=== PATIENT | male | born 1930 | race Caucasian/White ===

== ENCOUNTER → 2016-08-31 | Outpatient (CLI) | payer OTHER ==
[~2016-08-31] MED LIST: AMLO2.5T PO; AMLO5TAB2 PO; ASPI-496 PO; ASPI-515 PO; AZIT500T4 PO; CEFD300C2 PO; CEFU500T PO; CYAN10008 PO; CYAN250013 PO; DOXA1TAB2 PO; DOXY100T PO; Doxazosin Mesylate PO; ENAL10TA PO; FURO20TA3 PO; LABE200T3 PO; LACT1CAP24 PO; LACT1CAP35 PO; LEVO750T26 PO; METF10002 PO; METO25TA35 PO; MULT-717 PO; OMEP-110 PO; OMEP40CA6 PO; ONDA-39 PO; ONDA4TAB10 PO; PHEN-494 PO; POTA20TA14 PO; POTA20TA89 PO; TAMS-11 PO; VANC1VIA3 PO; VANCOMYCIN PO; VITA400T6 PO
== END | disposition home or self-care (01) ==
LOC: CFH 12:25
PROVIDERS: ATTEND Nurse Practitioner Family
DX: J90 Pleural effusion, not elsewhere classified (principal); R00.1 Bradycardia, unspecified
CPT/HCPCS: 71020

== ENCOUNTER 2016-10-16 03:46 | Inpatient (IN) | payer OTHER ==
[~2016-10-16] VITALS: Ht 188 cm; Wt 82.5 kg
[~2016-10-16 03:46] MED LIST changes: -AZIT500T4 PO; +AZIT500T77 PO; -CEFD300C2 PO; +CEFD300C37 PO
[2016-10-16] MEDS ORDERED: MORPHINE SULFATE 4 MG/ML, 1ML ONE (04:26)
[2016-10-16] MEDS ORDERED: BACITRACIN ZINC OINT 500U/GM, 0.9 GM ONE (04:27)
[2016-10-16] MEDS ORDERED: ONDANSETRON 2MG/ML, 2ML IVPush ONE (04:30)
[2016-10-16] MEDS ORDERED: ONDANSETRON 2MG/ML, 2ML ONE (04:30)
[2016-10-16] MEDS ORDERED: SODIUM CHLORIDE FLUSH 10ML SYR IVF ONE (04:30)
[2016-10-16] MEDS: MORPHINE SULFATE 4 MG/ML, 1ML IVPush PRN ×2 (04:51→06:29)
[2016-10-16 05:25] LABS: BLOOD UREA NITROGEN 44 mg/dL (7-18)
[2016-10-16] MEDS ORDERED: LIDOCAINE 1%, 20ML SQ ONE (05:30)
[2016-10-16] MEDS ORDERED: LIDOCAINE 1%, 20ML ONE (05:57)
[2016-10-16] MEDS ORDERED: SODIUM CHLORIDE 0.9% 1,000 ML IV ONE (07:40)
[2016-10-16] MEDS ORDERED: MORPHINE SULFATE 4 MG/ML, 1ML IVPush PRN (08:00)
[2016-10-16] MEDS ORDERED: ONDANSETRON 2MG/ML, 2ML IVPush PRN ×2 (08:00→10:30)
[2016-10-16 09:00] VITALS: BP 168/65
[2016-10-16] MEDS ORDERED: FUROSEMIDE 40 MG/4 ML IV ONE (10:00)
[2016-10-16] MEDS ORDERED: ONDANSETRON ODT 4 MG PO PRN (10:30)
[2016-10-16] MEDS ORDERED: DOCUSATE 100 MG CAPSULE PO PRN (10:30)
[2016-10-16] MEDS ORDERED: hydrALAzine 20 MG/ML, 1ML IVPush PRN (10:30)
[2016-10-16] MEDS ORDERED: morphine SULFATE 10 MG/ML, 1ML IVPush PRN (10:30)
[2016-10-16] MEDS ORDERED: ACETAMINOPHEN 325 MG TABLET PO PRN (10:30)
[2016-10-16] MEDS ORDERED: POLYETHYLENE GLYCOL 17 GM PACKET PO PRN (10:30)
[2016-10-16] MEDS ORDERED: BISACODYL 10 MG SUPP PR PRN (10:30)
[2016-10-16] MEDS ORDERED: DEXTROSE 4 GM TAB.CHEW PO PRN (13:00)
[2016-10-16] MEDS ORDERED: DEXTROSE 50%, 50ML SYRINGE IVPush PRN (13:00)
[2016-10-16] MEDS ORDERED: GLUCAGON 1 MG IM PRN (13:00)
[2016-10-16 13:17] VITALS: BP 165/62
[2016-10-16] MEDS: DOXAZOSIN 2MG TABLET PO SCH ×2 (13:19→22:41)
[2016-10-16] MEDS: INSULIN REGULAR 100 UNITS/ML, 3ML VIAL SQ-INSULIN SCH ×3 (13:24→22:29)
[2016-10-16 14:10] VITALS: BP 171/69
[2016-10-16 14:30] VITALS: BP 164/78
[2016-10-16 20:30] VITALS: BP 175/62
[2016-10-16] MEDS ORDERED: DOXAZOSIN 2MG TABLET PO SCH (21:00)
[2016-10-16] MEDS ORDERED: AMLODIPINE 5 MG TABLET PO SCH (21:00)
[2016-10-16] MEDS ORDERED: DOXAZOSIN MESYLATE 2 MG PO SCH (21:00)
[2016-10-16] MEDS: LABETALOL 200 MG TABLET PO SCH (22:16)
[2016-10-16] MEDS: SODIUM CHLORIDE FLUSH 10ML SYR IVF SCH (22:29)
[2016-10-17] VITALS (7 sets, daily range): BP systolic 144–192; BP diastolic 61–79
[2016-10-17 00:41] LABS: BLOOD UREA NITROGEN 45 mg/dL (7-18)
[2016-10-17] MEDS: DOXAZOSIN 2MG TABLET PO SCH ×2 (07:55→20:28)
[2016-10-17] MEDS: TAMSULOSIN 0.4 MG CAP.ER.24H PO SCH (07:55)
[2016-10-17] MEDS: LABETALOL 200 MG TABLET PO SCH ×2 (07:55→20:28)
[2016-10-17] MEDS: CYANOCOBALAMIN 1,000 MCG TABLET PO SCH (07:56)
[2016-10-17] MEDS: SODIUM CHLORIDE FLUSH 10ML SYR IVF SCH ×2 (07:56→20:29)
[2016-10-17] MEDS: SENNA/DOCUSATE TABLET PO SCH (07:56)
[2016-10-17] MEDS: INSULIN REGULAR 100 UNITS/ML, 3ML VIAL SQ-INSULIN SCH ×4 (07:58→20:48)
[2016-10-17] MEDS ORDERED: FUROSEMIDE 40 MG/4 ML IV ONE (10:00)
[2016-10-17] MEDS ORDERED: NEOSPORIN OINT, 15GM ONE (10:11)
[2016-10-17] MEDS ORDERED: KETAMINE 10 MG/ML, 20ML ONE (10:21)
[2016-10-17] MEDS ORDERED: BUPIVACAINE/PF 0.5% ONE (10:22)
[2016-10-17] MEDS ORDERED: FENTANYL PF 100 MCG/2ML ONE (11:10)
[2016-10-17] MEDS ORDERED: CEFAZOLIN 1,000 MG ONE (11:11)
[2016-10-17] MEDS ORDERED: PROPOFOL 10 MG/ML, 20ML ONE (11:11)
[2016-10-17] MEDS ORDERED: GLYCOPYRROLATE 0.2MG/1ML ONE (11:11)
[2016-10-17] MEDS ORDERED: PHENYLEPHRINE 10 MG/ML ONE (11:11)
[2016-10-17] MEDS ORDERED: HYDROcodone/APAP 7.5-325MG/15ML UDC PO PRN ×2 (12:00→15:00)
[2016-10-17] MEDS ORDERED: hydrALAzine 20 MG/ML, 1ML IV PRN (12:00)
[2016-10-17] MEDS ORDERED: FENTANYL PF 100 MCG/2ML IV PRN (12:00)
[2016-10-17] MEDS ORDERED: METOPROLOL 1 MG/ML, 5ML IV PRN (12:00)
[2016-10-17] MEDS ORDERED: ALBUTEROL/IPRATROPIUM 2.5MG/0.5MG, 3 ML NPPB PRN (12:00)
[2016-10-17] MEDS ORDERED: HYDROmorphone 1 MG/ML, 1ML IV PRN ×2 (12:00→15:00)
[2016-10-17] MEDS ORDERED: ACETAMINOPHEN 325 MG TABLET PO PRN (12:00)
[2016-10-17] MEDS ORDERED: ONDANSETRON 2MG/ML, 2ML IV PRN (15:00)
[2016-10-17] MEDS ORDERED: ONDANSETRON ODT 4 MG PO PRN (15:00)
[2016-10-17] MEDS ORDERED: OXYcodone/APAP 5/325MG TABLET PO PRN (15:00)
[2016-10-17] MEDS: KETOROLAC 30 MG/1 ML IV SCH ×2 (15:49→23:47)
[2016-10-17] MEDS ORDERED: CEFAZOLIN PMX 1GM/50ML 50 ML IVPB SCH (16:00)
[2016-10-17] MEDS: CEFAZOLIN PMX 1GM/50ML 50 ML IVPB SCH (20:27)
[2016-10-17] MEDS: DOCUSATE 100 MG CAPSULE PO SCH (20:28)
[2016-10-18 02:37] VITALS: BP 153/50
[2016-10-18] MEDS: CEFAZOLIN PMX 1GM/50ML 50 ML IVPB SCH (04:14)
[2016-10-18 04:17] VITALS: BP 169/63
[2016-10-18 04:57] LABS: BLOOD UREA NITROGEN 46 mg/dL (7-18)
[2016-10-18] MEDS: ENOXAPARIN 40 MG/0.4 ML SQ SCH (06:32)
[2016-10-18] MEDS: INSULIN REGULAR 100 UNITS/ML, 3ML VIAL SQ-INSULIN SCH ×4 (07:00→21:24)
[2016-10-18 08:09] VITALS: BP 170/62
[2016-10-18] MEDS: LABETALOL 200 MG TABLET PO SCH ×2 (08:15→21:19)
[2016-10-18] MEDS: DOCUSATE 100 MG CAPSULE PO SCH ×2 (08:15→21:16)
[2016-10-18] MEDS: CYANOCOBALAMIN 1,000 MCG TABLET PO SCH (08:15)
[2016-10-18] MEDS: DOXAZOSIN 2MG TABLET PO SCH ×2 (08:15→21:20)
[2016-10-18] MEDS: KETOROLAC 30 MG/1 ML IV SCH (08:15)
[2016-10-18] MEDS: TAMSULOSIN 0.4 MG CAP.ER.24H PO SCH (08:15)
[2016-10-18] MEDS: SODIUM CHLORIDE FLUSH 10ML SYR IVF SCH ×2 (08:16→21:20)
[2016-10-18] MEDS: SENNA/DOCUSATE TABLET PO SCH (08:24)
[2016-10-18 14:02] VITALS: BP 132/53
[2016-10-18 19:36] VITALS: BP 179/69
[2016-10-19 02:27] VITALS: BP 177/64
[2016-10-19] MEDS: ENOXAPARIN 40 MG/0.4 ML SQ SCH (05:24)
[2016-10-19 06:06] LABS: BLOOD UREA NITROGEN 52 mg/dL (7-18)
[2016-10-19] MEDS: INSULIN REGULAR 100 UNITS/ML, 3ML VIAL SQ-INSULIN SCH ×2 (07:00→12:15)
[2016-10-19 07:09] VITALS: BP 163/57
[2016-10-19] MEDS ORDERED: DOCU-30 PO (07:35)
[2016-10-19] MEDS ORDERED: INSU100V5 SQ-INSULIN (07:35)
[2016-10-19] MEDS ORDERED: TRAM50TA2 PO (07:35)
[2016-10-19] MEDS ORDERED: ENOX40SY4 SQ (07:35)
[2016-10-19] MEDS ORDERED: FUROSEMIDE 20 MG TABLET PO SCH (09:00)
[2016-10-19] MEDS: SODIUM CHLORIDE FLUSH 10ML SYR IVF SCH (09:16)
[2016-10-19] MEDS: DOCUSATE 100 MG CAPSULE PO SCH (09:17)
[2016-10-19] MEDS: TAMSULOSIN 0.4 MG CAP.ER.24H PO SCH (09:17)
[2016-10-19] MEDS: SENNA/DOCUSATE TABLET PO SCH (09:17)
[2016-10-19] MEDS: DOXAZOSIN 2MG TABLET PO SCH (09:17)
[2016-10-19] MEDS: LABETALOL 200 MG TABLET PO SCH (09:18)
[2016-10-19] MEDS: CYANOCOBALAMIN 1,000 MCG TABLET PO SCH (09:18)
[2016-10-19 13:59] VITALS: BP 114/58
[2016-10-19 18:00] VITALS: BP 133/70
== END 2016-10-19 15:31 | DRG 480 ==
LOC: ED 04:13 → EDIP 07:54 → 4NOR 08:29
PROVIDERS: ADMIT Internal Medicine; ATTEND Internal Medicine
PROC: 0JQ00ZZ Repair Scalp Subcutaneous Tissue and Fascia, Open Approach (ICD-10-PCS; principal; 2016-10-16)
PROC: 0QS734Z Reposition Left Upper Femur with Internal Fixation Device, Percutaneous Approach (ICD-10-PCS; 2016-10-17)
DX: S72.002A Fracture of unspecified part of neck of left femur, initial encounter for closed fracture (principal); I50.33 Acute on chronic diastolic (congestive) heart failure; K66.1 Hemoperitoneum; J96.90 Respiratory failure, unspecified, unspecified whether with hypoxia or hypercapnia; I13.0 Hypertensive heart and chronic kidney disease with heart failure and stage 1 through stage 4 chronic kidney disease, or unspecified chronic kidney disease; N17.9 Acute kidney failure, unspecified; N39.0 Urinary tract infection, site not specified; D63.8 Anemia in other chronic diseases classified elsewhere; D75.89 Other specified diseases of blood and blood-forming organs; E11.22 Type 2 diabetes mellitus with diabetic chronic kidney disease; E11.65 Type 2 diabetes mellitus with hyperglycemia; E87.5 Hyperkalemia; H91.90 Unspecified hearing loss, unspecified ear; I08.3 Combined rheumatic disorders of mitral, aortic and tricuspid valves; I27.2 Other secondary pulmonary hypertension; I48.0 Paroxysmal atrial fibrillation; K57.90 Diverticulosis of intestine, part unspecified, without perforation or abscess without bleeding; M19.90 Unspecified osteoarthritis, unspecified site; N18.9 Chronic kidney disease, unspecified; N40.0 Benign prostatic hyperplasia without lower urinary tract symptoms; R29.6 Repeated falls; R32 Unspecified urinary incontinence; S01.01XA Laceration without foreign body of scalp, initial encounter; S51.011A Laceration without foreign body of right elbow, initial encounter; S51.012A Laceration without foreign body of left elbow, initial encounter; S51.819A Laceration without foreign body of unspecified forearm, initial encounter; W18.2XXA Fall in (into) shower or empty bathtub, initial encounter; Y92.009 Unspecified place in unspecified non-institutional (private) residence as the place of occurrence of the external cause; Y93.E1 Activity, personal bathing and showering; Z66 Do not resuscitate; Z79.01 Long term (current) use of anticoagulants; Z79.84 Long term (current) use of oral hypoglycemic drugs; Z86.19 Personal history of other infectious and parasitic diseases; Z86.73 Personal history of transient ischemic attack (TIA), and cerebral infarction without residual deficits; Z87.442 Personal history of urinary calculi
CPT/HCPCS: 12002; 36415; 70450; 71010; 72125; 72192; 74150; 76000; 76770; 80048; 82040; 82962; 83880; 85025; 85610; 85730; 93005; 96374; 96375; 96376; C1713; J0690; J1650; J1815; J1885; J1940; J2405; J2704; J3010; J3490; Q0162; J0360; J2370

== ENCOUNTER → 2016-11-10 | Outpatient (CLI) | payer OTHER ==
[~2016-11-10] MED LIST changes: +DOCU-30 PO; +ENOX40SY4 SQ; +INSU100V5 SQ-INSULIN; +TRAM50TA2 PO
== END | disposition home or self-care (01) ==
LOC: CFH 12:30
PROVIDERS: ATTEND Physician Assistant Medical
DX: M79.89 Other specified soft tissue disorders (principal)

== ENCOUNTER 2016-11-21 03:01 | Emergency (ER) | payer OTHER ==
[~2016-11-21] VITALS: Ht 182.9 cm; Wt 82.0 kg
[2016-11-21] MEDS ORDERED: METF10002 PO (03:24)
[2016-11-21 04:49] VITALS: BP 115/39
== END 2016-11-21 05:52 | disposition home or self-care (01) ==
LOC: ED 03:24
DX: S42.294A Other nondisplaced fracture of upper end of right humerus, initial encounter for closed fracture (principal); E11.9 Type 2 diabetes mellitus without complications; I10 Essential (primary) hypertension; N40.0 Benign prostatic hyperplasia without lower urinary tract symptoms; I48.91 Unspecified atrial fibrillation; Z88.0 Allergy status to penicillin; Z86.73 Personal history of transient ischemic attack (TIA), and cerebral infarction without residual deficits; W19.XXXA Unspecified fall, initial encounter; Y93.89 Activity, other specified; Y99.8 Other external cause status; Y92.009 Unspecified place in unspecified non-institutional (private) residence as the place of occurrence of the external cause
CPT/HCPCS: 99284

== ENCOUNTER 2017-02-22 08:26 | Observation (INO) | payer OTHER ==
[2017-02-20 11:39] LABS: HEMATOCRIT 33.7 % (39.2-51.8); HEMOGLOBIN 11.5 g/dL (13.7-18.0); WHITE BLOOD COUNT 9.5 x10^3/uL (3.4-10)
[2017-02-20 11:51] LABS: BLOOD UREA NITROGEN 57 mg/dL (7-18)
[~2017-02-22] VITALS: Ht 180.3 cm; Wt 75.9 kg
[~2017-02-22 08:26] MED LIST changes: +AZIT500T5 PO; -AZIT500T77 PO; +CYAN100072 PO; -CYAN10008 PO; +DOCU-131 PO; -DOCU-30 PO; +ENAL20TA PO; +LACT1CAP37 PO; -ONDA-39 PO; +ONDA4TAB12 PO; -PHEN-494 PO; +PHEN-583 PO
[2017-02-22] MEDS ORDERED: SODIUM CHLORIDE 0.9% 1,000 ML IV SCH (08:31)
[2017-02-22] MEDS ORDERED: VANCOMYCIN PMX 1GM/200ML 200 ML IVPB ONE ×2 (09:00→23:30)
[2017-02-22] MEDS ORDERED: MULT-205 PO (09:06)
[2017-02-22] MEDS ORDERED: MIDAZOLAM 1 MG/ML, 5ML ONE (09:06)
[2017-02-22] MEDS ORDERED: VANCOMYCIN 500 MG ONE (09:06)
[2017-02-22] MEDS ORDERED: VITA1TAB19 PO (09:06)
[2017-02-22] MEDS ORDERED: DIPHENHYDRAMINE 50 MG/ML, 1ML ONE (09:06)
[2017-02-22] MEDS ORDERED: FENTANYL PF 100 MCG/2ML ONE (09:06)
[2017-02-22] MEDS ORDERED: LIDOCAINE 2%, 20ML ONE ×2 (09:07→10:15)
[2017-02-22] MEDS ORDERED: VANCOMYCIN PMX 1GM/200ML 200 ML ONE (09:07)
[2017-02-22] MEDS ORDERED: ONDANSETRON 2MG/ML, 2ML ONE (09:24)
[2017-02-22] MEDS ORDERED: ONDANSETRON 2MG/ML, 2ML IVPush ONE (09:30)
[2017-02-22] MEDS ORDERED: ONDANSETRON 4 MG TABLET PO PRN (11:00)
[2017-02-22 14:50] VITALS: BP 166/71
[2017-02-22] MEDS: FUROSEMIDE 40 MG TABLET PO SCH (18:22)
[2017-02-22] MEDS: metFORMIN 500 MG TABLET PO SCH (18:22)
[2017-02-22 19:08] VITALS: BP 167/68
[2017-02-22] MEDS ORDERED: VANCOMYCIN PMX 1GM/200ML 200 ML IVPB SCH (21:00)
[2017-02-22 22:31] VITALS: BP 176/68
[2017-02-22] MEDS: SODIUM CHLORIDE FLUSH 10ML SYR IVF SCH (22:42)
[2017-02-22] MEDS: DOXAZOSIN 2MG TABLET PO SCH (22:42)
[2017-02-22] MEDS: LABETALOL 200 MG TABLET PO SCH (22:44)
[2017-02-22] MEDS: ENALAPRIL 20MG TABLET PO SCH (22:44)
[2017-02-23 01:50] VITALS: BP 167/70
[2017-02-23] MEDS ORDERED: OMEPRAZOLE 20 MG CAPSULE.DR PO SCH (07:30)
[2017-02-23 07:50] VITALS: BP 159/66
[2017-02-23] MEDS ORDERED: TEMPLATE NON-FORMULARY MED. (Multivits-Min/Fa/Lycopene/Lut** (Centrum Silver Tablet**) 1 T PO SCH (09:00)
[2017-02-23] MEDS ORDERED: TAMSULOSIN 0.4 MG CAP.ER.24H PO SCH (09:00)
[2017-02-23] MEDS ORDERED: TEMPLATE NON-FORMULARY MED. (Vitamin B Complex** (B Complex**) 1 TAB) PO SCH (09:00)
[2017-02-23] MEDS ORDERED: MULTIVITAMINS/MINERALS TABLET PO SCH (09:00)
[2017-02-23] MEDS ORDERED: LACTOBACILLUS 1GM/ PACKET PO SCH (09:00)
[2017-02-23] MEDS: FUROSEMIDE 40 MG TABLET PO SCH (09:00)
[2017-02-23] MEDS: SODIUM CHLORIDE FLUSH 10ML SYR IVF SCH (10:15)
[2017-02-23] MEDS: metFORMIN 500 MG TABLET PO SCH (10:15)
[2017-02-23] MEDS: LABETALOL 200 MG TABLET PO SCH (10:15)
[2017-02-23] MEDS: ENALAPRIL 20MG TABLET PO SCH (10:15)
[2017-02-23] MEDS: DOXAZOSIN 2MG TABLET PO SCH (10:15)
== END 2017-02-23 11:36 | disposition home or self-care (01) ==
LOC: CACL 08:26 → ORIP 10:41 → 5SO 10:58
PROVIDERS: ADMIT Internal Medicine Cardiovascular Disease; ATTEND Internal Medicine Cardiovascular Disease
DX: I49.5 Sick sinus syndrome (principal); R00.1 Bradycardia, unspecified; K92.2 Gastrointestinal hemorrhage, unspecified; E78.5 Hyperlipidemia, unspecified; I35.0 Nonrheumatic aortic (valve) stenosis; D64.9 Anemia, unspecified; I48.0 Paroxysmal atrial fibrillation; I73.9 Peripheral vascular disease, unspecified; E11.9 Type 2 diabetes mellitus without complications; I11.0 Hypertensive heart disease with heart failure; I50.33 Acute on chronic diastolic (congestive) heart failure; J90 Pleural effusion, not elsewhere classified; G45.9 Transient cerebral ischemic attack, unspecified; Z86.73 Personal history of transient ischemic attack (TIA), and cerebral infarction without residual deficits
CPT/HCPCS: 33208; 36005; 36415; 71010; 71020; 80048; 85025; 93005; 96365; 96375; 99156; 99157; C1779; C1785; C1892; G0378; J1200; J2250; J2405; J3010; J3370; J3490; Q9967